=== PATIENT | male | born 1955 | race Caucasian/White ===

== ENCOUNTER 2017-01-12 16:42 | Observation (INO) | payer BC ==
[~2017-01-12] VITALS: Ht 171.4 cm; Wt 73.6 kg
[2017-01-12] MEDS ORDERED: SODIUM CHLORIDE 0.9% 1000ML 1,000 ML IV SCH (17:01)
[2017-01-12 17:10] LABS: BASO % 0.5 %; BASO ABS # 0.06 K/uL (0-0.2); COMPLETE YES; EOS % 2.2 %; HEMATOCRIT 35.5 % (42-52); IG% 0.8 %; LYMPH % 12.3 %; LYMPH ABS # 1.51 K/uL (1.2-3.4); MEAN CELL VOLUME 80.1 fL (80-100); MEAN CORPUSCULAR HGB CONC 34.9 g/dl (32-36); MEAN PLATELET VOLUME 8.7 fL (7.4-10.4); MONO % 11.6 %; NEUT % 72.6 %; PLATELET COUNT 267 K/uL (130-400); RED BLOOD COUNT 4.43 M/uL (4.7-6.1); WHITE BLOOD COUNT 12.29 K/uL (4.8-10.8)
[2017-01-12 17:18] LABS: PROTHROMBIN TIME (PATIENT) 10.7 SECONDS (9.0-12.0)
--- NOTE | 2017-01-12 17:29 | DIAGNOSTIC IMAGING REPORT ---
CHEST ONE VIEW PORTABLE CLINICAL HISTORY: Stroke dyspnea COMPARISON STUDY: None FINDINGS: The bones soft tissues and hemidiaphragms are normal. The cardiomediastinal silhouette is normal. The lungs are clear. The pulmonary vasculature is normal. Small fixed hiatal hernia IMPRESSION: No acute process. Small fixed hiatal hernia Electronically signed by: Blaine Wolfe M.D. 01/12/2017 5:28 PM Dictated Date/Time: 01/12/2017 5:27 PM
[2017-01-12 17:30] LABS: BLOOD UREA NITROGEN 23 mg/dl (7-18); BUN/CREATININE RATIO 14.3 (10-20); CARBON DIOXIDE 23 mmol/L (21-32); CHLORIDE 97 mmol/L (98-107); GLUCOSE 104 mg/dl (70-99); POTASSIUM 4.2 mmol/L (3.5-5.1); SODIUM 133 mmol/L (136-145)
[2017-01-12] MEDS ORDERED: IRON PO (17:30)
[2017-01-12] MEDS ORDERED: ASCO500C43 PO (17:30)
[2017-01-12] MEDS ORDERED: PROM12.57 PO (17:30)
[2017-01-12] MEDS ORDERED: METF-383 PO (17:30)
[2017-01-12] MEDS ORDERED: LOSA100T2 PO (17:30)
[2017-01-12] MEDS ORDERED: IMD/2 PO (17:30)
[2017-01-12] MEDS ORDERED: ASPI81TA28 PO (17:30)
[2017-01-12] MEDS ORDERED: PRAV20TA PO (17:30)
[2017-01-12] MEDS ORDERED: LORA-741 PO (17:30)
[2017-01-12] MEDS ORDERED: AMLO-114 PO (17:30)
[2017-01-12] MEDS ORDERED: OMEP40CA41 PO (17:30)
[2017-01-12] MEDS ORDERED: METO25TA3 PO (17:30)
[2017-01-12] MEDS ORDERED: DUTA0.5C PO (17:30)
[2017-01-12] MEDS ORDERED: AMOX875T PO (17:30)
[2017-01-12 17:35] LABS: CKMB/CK RATIO 3.9 (0-3.0)
--- NOTE | 2017-01-12 18:04 | DIAGNOSTIC IMAGING REPORT ---
HEAD CT NONCONTRAST CT DOSE: 1257.71 mGy.cm HISTORY: Mental status change Stroke TECHNIQUE: Multiaxial CT images of the head were performed without the use of intravenous contrast. Comparison: None. Findings: The paranasal sinuses and mastoid air cells are clear. The calvarium and skull base are intact. The ventricles and sulci are within normal limits. There is no mass, hematoma, midline shift, or acute infarct. Impression: No acute intracranial abnormality. Electronically signed by: Blaine Wolfe M.D. 01/12/2017 6:03 PM Dictated Date/Time: 01/12/2017 6:02 PM
[2017-01-12 18:13] LABS: ALKALINE PHOSPHATASE 95 U/L (45-117); ALT/SGPT 26 U/L (12-78); AST/SGOT 19 U/L (15-37)
--- NOTE | 2017-01-12 18:39 | EMERGENCY ROOM VISIT NOTE ---
History Report prepared by Harley: Mayela Horvath Under the Supervision of: Dr. Andres Beach D.O. First contact with patient: 16:48 Chief Complaint: VOMITING Stated Complaint: SICK SINCE FRI,VOMITING,POSSIBLE EAR INFECTION Nursing Triage Summary: n/v/d since Friday pm abd pain and epigastric pain chronic hiccups since Fri History of Present Illness The patient is a 61 year old male who presents to the Emergency Room with complaints of intermittent nausea and vomiting that started 4 days ago. He states that he is unable to keep anything down. The patient states that his symptoms started 5 days ago with generalized weakness followed by bowel incontinence and sweating. He went to the ED in [place] that night and they did a CT scan of his head. The patient was diagnosed with vertigo and followed up with his PCP the next day. His PCP also diagnosed him with vertigo and said that he might have an inner ear infection, but she did not see an infection because his ears need to cleaned out. The patient states that he developed persistent hiccups 4 days ago. He states that he took his daily medications 3 days ago and gagged after taking them. His immediately called the ambulance , but the patient was able to get the medications down prior to EMS arrival. He went to the ED anyway. The patient received a MRI of his head during that visit. GI was also consulted, but he states that he couldn't get in to see them for a while. He is also experiencing bilateral eye pain, visual problems in his right eye, throat pain, neck pain, intermittent abdominal pain, tingling in his right hand, and diarrhea. All of these symptoms were present when he was seen in the ED previously. He denies any one-sided weakness. The patient's adds that the patient had one of his esophagus rings stretched in the past. The patient also has a history of Type 2 diabetes, hypertension, and an unspecified kidney disease. Source of History: patient, spouse/significant other () Onset: 5 days ago Quality: other (nausea and vomiting) Timing: intermittent Associated Symptoms: + abdominal pain (intermittent), + diarrhea, + neck pain, + weakness (generalized, no one-sided) Note: bilateral eye pain, visual problems in his right eye, throat pain, hiccups, trouble swallowing, tingling in his right hand, bowel incontinence, sweating Review of Systems See HPI for pertinent positives & negatives. A total of 10 systems reviewed and were otherwise negative. Past Medical & Surgical Medical Problems: (1) Abdominal pain (2) BPH (benign prostatic hyperplasia) (3) History of esophageal dilatation (4) HLD (hyperlipidemia) (5) Hypertension (6) Nausea & vomiting (7) Skin cancer of nose (8) Type 2 diabetes mellitus Surgical Problems: (1) H/O repair of left rotator cuff (2) History of vasectomy Family History No pertinent family history Social History Smoking Status: Former Smoker Marital Status: Housing Status: lives with family Current/Historical Medications Scheduled Amlodipine (Norvasc), 10 MG PO DAILY Amoxicillin & Pot Clavulanate (Augmentin 875-125 mg), 1 TAB PO BID Ascorbic Acid (Vitamin C 500 mg), 500 MG PO DAILY Aspirin (Aspirin Ec), 81 MG PO DAILY Dutasteride (Avodart), 0.5 MG PO QPM Loperamide Hcl (Imodium), 2 MG PO PRN UD Losartan Potassium & Hydrochlo (Hyzaar), 1 TAB PO DAILY Metformin Hcl (Glucophage), 850 MG PO BID Metoprolol Succ (Toprol Xl) (Toprol-Xl), 25 MG PO BID Omeprazole (Prilosec), 40 MG PO DAILY Pravastatin (Pravachol ), 20 MG PO QPM [Iron], 65 MG PO QPM Scheduled PRN Lorazepam (Ativan), 0.5 MG PO BID PRN for Anxiety Promethazine (Phenergan ), 12.5 MG PO Q4H PRN for Nausea Allergies Coded Allergies: Codeine (Verified Allergy, Severe, GI SYMPTOMS, 01/12/17) Lisinopril (Verified Allergy, Intermediate, COUGH, 01/12/17) Paroxetine (Verified Allergy, Unknown, RASH, 01/12/17) Physical Exam Vital Signs Date Time Temp Pulse Resp B/P Pulse Ox O2 Delivery O2 Flow Rate FiO2 01/12/17 20:02 79 16 129/60 97 Room Air 01/12/17 18:37 82 18 158/76 98 Room Air 01/12/17 17:07 86 01/12/17 17:03 98 Room Air 01/12/17 16:43 36.7 84 20 115/78 95 Room Air Physical Exam GENERAL: Patient is awake and alert, but somewhat listless appearing. Patient is in no acute distress. Patient is resting comfortably and does not appear to be anxious or in any pain. EYES: The conjunctivae are clear. The pupils are round and reactive. EARS, NOSE, MOUTH AND THROAT: Bilateral cerumen impaction noted. The nose is without any evidence of any deformity. Mucous membranes are moist tongue is midline NECK: The neck is nontender and supple. RESPIRATORY: Normal respiratory effort is noted there is no evidence of wheezing rhonchi or rales CARDIOVASCULAR: Regular rate and rhythm noted there no murmurs rubs or gallops normal S1 normal S2 GASTROINTESTINAL: The abdomen is soft. Bowel sounds are present in all quadrants. Abdomen is nontender MUSCULOSKELETAL/EXTREMITIES: There is no evidence of gross deformity full range of motion is noted in the hips and shoulders SKIN: There is no obvious evidence of any rash. There are no petechiae, pallor or cyanosis noted. NEUROLOGIC: Patient is awake alert and oriented x3. No drift in either upper extremity. Patellar tendon reflexes 1+ bilaterally. Medical Decision & Procedures ER Provider Diagnostic Interpretation: Radiology results as stated below per my review and radiologist interpretation: CHEST ONE VIEW PORTABLE IMPRESSION: No acute process. Small fixed hiatal hernia Electronically signed by: Blaine Wolfe M.D. 01/12/2017 5:28 PM Dictated Date/Time: 01/12/2017 5:[address] NONCONTRAST Impression: No acute intracranial abnormality. Electronically signed by: Blaine Wolfe M.D. 01/12/2017 6:03 PM Dictated Date/Time: 01/12/2017 6:02 PM Laboratory Results Test 01/12/17 16:56 01/12/17 17:05 01/12/17 20:19 Prothrombin Time 10.7 SECONDS (9.0-12.0) Prothromb Time International Ratio 1.0 (0.9-1.1) Activated Partial Thromboplast Time 25.9 SECONDS (21.0-31.0) Partial Thromboplastin Ratio 1.0 Magnesium Level 1.8 mg/dl (1.8-2.4) Total Bilirubin 0.3 mg/dl (0.2-1) Direct Bilirubin < 0.1 mg/dl (0-0.2) Aspartate Amino Transf (AST/SGOT) 19 U/L (15-37) Alanine Aminotransferase (ALT/SGPT) 26 U/L (12-78) Alkaline Phosphatase 95 U/L (45-117) Total Creatine Kinase 38 U/L (39-308) Creatine Kinase MB 1.5 ng/ml (0.5-3.6) Creatine Kinase MB Ratio 3.9 (0-3.0) Troponin I < 0.015 ng/ml (0-0.045) Total Protein 7.6 gm/dl (6.4-8.2) Albumin 3.9 gm/dl (3.4-5.0) Lipase 244 U/L (73-393) Thyroid Stimulating Hormone (TSH) 1.650 uIu/ml (0.300-4.500) Estimated Average Glucose 131 mg/dl Hemoglobin A1c 6.2 % (4.5-5.6) Lactic Acid Level 1.6 mmol/L (0.4-2.0) Lyme Disease IgG Antibody NEG (NEG) Laboratory results per my review. Medications Administered Medications (Trade) Dose Ordered Sig/Cari Route Start Time Stop Time Status Last Admin Dose Admin Sodium Chloride (Nss 1000ml) 1,000 ml @ 50 mls/hr Q20H IV 01/12/17 17:01 01/12/17 21:43 DC 01/12/17 18:37 50 MLS/HR ECG Indication: abdominal pain Rate (beats per minute): 78 Rhythm: normal sinus Findings: Q waves (Inferior), no ectopy, other (no acute ST segment abnormalities) Comparison ECG Date: no prior available ED Course 1657: The patient was evaluated in room A12. A complete history and physical examination were performed. 1701: Ordered NSS 1,000 ml @ 50 mls/hr IV 1825: Upon reevaluation, the patient is resting comfortably. I discussed results and treatment plan with the patient and his . They verbalize agreement and understanding. The patient will be evaluated for further management and care. 1831: I discussed the patient's case with Cecile Bassett. The patient will be evaluated for further management. Medical Decision Prior records/ancillary studies reviewed. Triage Nursing notes reviewed. Additional history obtained from . The patient's history was concerning for dizziness and vertigo. Differential diagnosis: Etiologies such as benign positional vertigo, dehydration, hypovolemia, anemia, tumor, infection, electrolyte abnormalities, cardiac sources, intracerebral event, toxicologic, neurologic, infection, hypo/hyperglycemia, as well as others were entertained. The patient is a 61-year-old male who presented to the emergency department with multiple complaints. The patient appears to have nausea as well as vertigo symptoms but also has abdominal pain. He's had difficulty ambulating. He presented to the emergency department with his significant other. The patient has been seen in [facility] as well as by his primary care physician for this multiple times. He's also had difficulty swallowing. His primary care physician: Come to our facility today because of possible neurologic issues. They felt he would need to be admitted. The patient's workup in emergency department did not reveal any cause for his symptoms. The patient was reevaluated multiple times. I discussed his case with the on-call [facility] hospitalist. They have agreed to evaluate the patient in the emergency department for further management and disposition. Consults Time Called: 1828 Consulting Physician: Cecile Bassett Returned Call: 1830 I discussed the patient's case with Cecile Bassett. The patient will be evaluated for further management. Impression Primary Impression: TIA (transient ischemic attack) Additional Impressions: Vertigo Weakness Intractable hiccups Dysphagia Dehydration Scribe Attestation The scribe's documentation has been prepared under my direction and personally reviewed by me in its entirety. I confirm that the note above accurately reflects all work, treatment, procedures, and medical decision making performed by me. Departure Information Dispostion Being Evaluated By Hospitalist Referrals Allan Williamson M.D. (PCP) Patient Instructions [facility] Problem Qualifiers Primary Impression: TIA (transient ischemic attack) Transient cerebral ischemia type: unspecified Qualified Codes: G45.9 - Transient cerebral ischemic attack, unspecified Additional Impressions: Dysphagia Dysphagia type: unspecified Qualified Codes: R13.10 - Dysphagia, unspecified
--- NOTE | 2017-01-12 20:17 | History and Physical ---
History & Physical Date & Time of Service: Jan 12, 2017 at 19:57 Chief Complaint: Weakness, Hiccups Primary Care Physician: Allan Williamson M.D. History of Present Illness 61 year old male who presents to the ER with generalized weakness and hiccups. Patient reports 6 days ago he felt lightheaded and dizzy and was leaning to the right whenever he would walk. He was seen at [facility]'s ER. Per his report, he had CT scan of the head that was normal and was discharged home to follow up with his PCP who he saw the following day. He was then diagnosed with an ear infection and was given an antibiotic. The following morning he woke up and had hiccups. While taking his pills, he hiccuped and choked on his pills. He was able to get them out on his own. He also reports left hand numbness at that time that quickly resolved. He then went back to the ER. Per his report, he had an MRI of the brain that was normal was discharged home to follow up with GI and his PCP. Patient reports the hiccuping has persisted. He has been unable to keep liquids or food down. He still feels lightheaded and dizzy at times. No syncopal events. No unilateral weakness, numbness, or tingling. He denies abdominal pain. He reports he has been having diarrhea. He denies BRBRP or dark tarry stools. No chest pain or shortness of breath. He denies fever and chills. Feels like his urine output is down but denies other urinary symptoms. In the ER , patient's creat is 1.6 (unknown baseline but patient denies history of kidney problems). CT head is negative for acute findings and remainder of his labs are unremarkable. Past Medical/Surgical History Medical Problems: (1) BPH (benign prostatic hyperplasia) Status: Chronic (2) History of esophageal dilatation Status: Chronic (3) HLD (hyperlipidemia) Status: Chronic (4) Hypertension Status: Chronic (5) Skin cancer of nose Status: Chronic (6) Type 2 diabetes mellitus Status: Chronic Surgical Problems: (1) H/O repair of left rotator cuff Status: Chronic (2) History of vasectomy Status: Chronic Family History FH: esophageal cancer FATHER Social History Smoking Status: Former Smoker Alcohol Use: none Marital Status: Allergies Coded Allergies: Codeine (Verified Allergy, Severe, GI SYMPTOMS, 01/12/17) Lisinopril (Verified Allergy, Intermediate, COUGH, 01/12/17) Paroxetine (Verified Allergy, Unknown, RASH, 01/12/17) Home Medications Scheduled Amlodipine (Norvasc), 10 MG PO DAILY Amoxicillin & Pot Clavulanate (Augmentin 875-125 mg), 1 TAB PO BID Ascorbic Acid (Vitamin C 500 mg), 500 MG PO DAILY Aspirin (Aspirin Ec), 81 MG PO DAILY Dutasteride (Avodart), 0.5 MG PO QPM Loperamide Hcl (Imodium), 2 MG PO PRN UD Losartan Potassium & Hydrochlo (Hyzaar), 1 TAB PO DAILY Metformin Hcl (Glucophage), 850 MG PO BID Metoprolol Succ (Toprol Xl) (Toprol-Xl), 25 MG PO BID Omeprazole (Prilosec), 40 MG PO DAILY Pravastatin (Pravachol ), 20 MG PO QPM [Iron], 65 MG PO QPM Scheduled PRN Lorazepam (Ativan), 0.5 MG PO BID PRN for Anxiety Promethazine (Phenergan ), 12.5 MG PO Q4H PRN for Nausea Review of Systems 10 point review of systems was completed with the pertinent positives and negatives noted per the HPI Physical Exam Vital Signs Date Time Temp Pulse Resp B/P Pulse Ox O2 Delivery O2 Flow Rate FiO2 01/12/17 18:37 82 18 158/76 98 Room Air 01/12/17 17:07 86 01/12/17 17:03 98 Room Air 01/12/17 16:43 36.7 84 20 115/78 95 Room Air General Appearance: no apparent distress (hiccuping during exam) Head: normocephalic Eyes: normal inspection ENT: hearing grossly normal Neck: supple, no JVD Respiratory/Chest: lungs clear, normal breath sounds, no respiratory distress Cardiovascular: regular rate, rhythm, no edema, normal peripheral pulses Abdomen/GI: normal bowel sounds, non tender, soft Extremities/Musculoskelatal: normal inspection, no calf tenderness Neurologic/Psych: no motor/sensory deficits, alert, normal mood/affect, oriented x 3 Skin: normal color, warm/dry Diagnostics Laboratory Results Results Past 24 Hours Test 01/12/17 16:56 01/12/17 19:42 01/12/17 19:45 Range/Units White Blood Count 12.29 4.8-10.8 K/uL Red Blood Count 4.43 4.7-6.1 M/uL Hemoglobin 12.4 14.0-18.0 g/dL Hematocrit 35.5 42-52 % Mean Corpuscular Volume 80.1 80-100 fL Mean Corpuscular Hemoglobin 28.0 25-34 pg Mean Corpuscular Hemoglobin Concent 34.9 32-36 g/dl Platelet Count 267 130-400 K/uL Mean Platelet Volume 8.7 7.4-10.4 fL Neutrophils (%) (Auto) 72.6 % Lymphocytes (%) (Auto) 12.3 % Monocytes (%) (Auto) 11.6 % Eosinophils (%) (Auto) 2.2 % Basophils (%) (Auto) 0.5 % Neutrophils # (Auto) 8.92 1.4-6.5 K/uL Lymphocytes # (Auto) 1.51 1.2-3.4 K/uL Monocytes # (Auto) 1.43 0.11-0.59 K/uL Eosinophils # (Auto) 0.27 0-0.5 K/uL Basophils # (Auto) 0.06 0-0.2 K/uL RDW Standard Deviation 40.2 36.4-46.3 fL RDW Coefficient of Variation 13.7 11.5-14.5 % Immature Granulocyte % (Auto) 0.8 % Immature Granulocyte # (Auto) 0.10 0.00-0.02 K/uL Prothrombin Time 10.7 9.0-12.0 SECONDS Prothromb Time International Ratio 1.0 0.9-1.1 Activated Partial Thromboplast Time 25.9 21.0-31.0 SECONDS Partial Thromboplastin Ratio 1.0 Sodium Level 133 136-145 mmol/L Potassium Level 4.2 3.5-5.1 mmol/L Chloride Level 97 98-107 mmol/L Carbon Dioxide Level 23 21-32 mmol/L Anion Gap 13.0 3-11 mmol/L Blood Urea Nitrogen 23 7-18 mg/dl Creatinine 1.60 0.60-1.40 mg/dl Est Creatinine Clear Calc Drug Dose 45.6 ml/min Estimated GFR () 52.7 Estimated GFR (Non- 45.5 BUN/Creatinine Ratio 14.3 10-20 Random Glucose 104 70-99 mg/dl Calcium Level 9.0 8.5-10.1 mg/dl Total Bilirubin 0.3 0.2-1 mg/dl Direct Bilirubin < 0.1 0-0.2 mg/dl Aspartate Amino Transf (AST/SGOT) 19 15-37 U/L Alanine Aminotransferase (ALT/SGPT) 26 12-78 U/L Alkaline Phosphatase 95 45-117 U/L Total Creatine Kinase 38 39-308 U/L Creatine Kinase MB 1.5 0.5-3.6 ng/ml Creatine Kinase MB Ratio 3.9 0-3.0 Troponin I < 0.015 0-0.045 ng/ml Total Protein 7.6 6.4-8.2 gm/dl Albumin 3.9 3.4-5.0 gm/dl Lipase 244 73-393 U/L Microbiology Results 01/12/17 Blood Culture, Nazia Batch Pending 01/12/17 Blood Culture, Nazia Batch Pending Diagnostic Radiology CT Head Impression: No acute intracranial abnormality. CXR IMPRESSION: No acute process. Small fixed hiatal hernia Impression Assessment and Plan N/V, HICCUPS - admit to med/surg - patient presenting with intermittent lightheadedness/dizziness, persistent hiccups; was seen at [facility] ER this week and had head CT and brain MRI ( negative per patient report, will obtain records) - supportive care with IVF, antiemetics - hx of esophageal stricture s/p dilation (details unknown) - GI consult CHELE - likely pre renal due to poor PO intake and N/V - IVF, follow up labs in AM - baseline creat unknown - patient denies history of kidney disease GENERALIZED WEAKNESS, DIZZINESS - likely orthostasis from volume depletion - head CT negative; had brain MRI at [facility] - negative per patient report, will obtain records - IVF HTN - BP stable - hold losartan/HCTZ due to CHELE - continue metoprolol and amlodipine DM - hold oral agents and utilize SSI while hospitalized DISPO - The patient will be placed as observation status for now until further work up is complete. Assessment/Plan IM ATTENDING : Patient seen and examined. Preceding documentation by CHARAN Leiva, reviewed. In addition, CT abd pelvis unremarkable except for hiatal hernia. FINAL ASSESSMENT AND PLAN as follows: 1. Abdominal pain, nausea, vomiting, hiccups likely viral gastroenteritis No signs of toxicity 2. Hyponatremia, chronic renal insufficiency creatinine at baseline mild dehydration 2 to GI illness 3. Hypertension, slightly elevated. 4. DM2 on oral meds, unknown baseline control 5. Chronic anemia 2 to CKD, hemoglobin at baseline Observation GMF Symptomatic management of GI sx for now. IV fluids. Inpatient GI consult as per patient's request for evaluation of nausea, vomiting and hiccup symptoms. Patient could not wait for his outpatient GI appointment with this week (Dr. Gracia). ISS BG goal 140-180. Check hemoglobin A1c. DVT prophylaxis, SCDs. Full code.
[2017-01-12 20:25] LABS: MAGNESIUM 1.8 mg/dl (1.8-2.4); THYROID STIMULATING HORMONE 1.65 uIu/ml (0.300-4.500)
[2017-01-12] MEDS ORDERED: IV FLUIDS COMPLETED PRN (21:15)
[2017-01-12] MEDS ORDERED: LORAZEPAM 2 MG/ML 1 ML VIAL IV PRN (21:15)
[2017-01-12] MEDS ORDERED: LORAZEPAM 0.5 MG TAB PO PRN (21:15)
[2017-01-12] MEDS ORDERED: ACETAMINOPHEN 325 MG TAB PO PRN (21:15)
[2017-01-12] MEDS ORDERED: HYDROmorphone INJ 0.5 MG/0.5 ML SYR IV PRN (21:15)
[2017-01-12] MEDS ORDERED: TRAMADOL HCL 50 MG TAB PO PRN (21:15)
[2017-01-12] MEDS ORDERED: ONDANSETRON INJ 2 MG/ML 2 ML VIAL IV PRN (21:15)
[2017-01-12] MEDS ORDERED: PROMETHAZINE HCL INJ 12.5 MG in SODIUM CHLORIDE 0.9% 50ML 50 ML IV PRN (21:15)
[2017-01-12 21:21] VITALS: O2SAT 99
--- NOTE | 2017-01-12 21:44 | DIAGNOSTIC IMAGING REPORT ---
ABDOMEN AND PELVIS CT WITHOUT CONTRAST CT DOSE: 635.95 mGy.cm HISTORY: Nausea. Pain. abd pain TECHNIQUE: Multiaxial CT images of the abdomen and pelvis were performed without contrast. COMPARISON STUDY: None. FINDINGS: Hiatal hernia. Lung bases are clear. Liver spleen and pancreas appear unremarkable. Gallbladder is negative for distention. Bowel pattern within the abdomen and pelvis is nonobstructive. Kidneys negative for hydronephrosis. Small fat-containing periumbilical hernia. Bladder is midline. No free fluid within the pelvic cul-de-sac. Normal appendix IMPRESSION: No significant abnormality identified within the abdomen or pelvis. Electronically signed by: Blaine Wolfe M.D. 01/12/2017 9:43 PM Dictated Date/Time: 01/12/2017 9:40 PM
[2017-01-12] MEDS: SODIUM CHLORIDE 0.9% 1000ML 1,000 ML IV SCH (22:13)
[2017-01-12] MEDS ORDERED: MAGNESIUM SULFATE 1GM / D5W 1 GM in PREMIXED IN D5W 100 ML IV ONE (23:30)
[2017-01-12 23:42] VITALS: BP 170/75; PULSE 86; TEMP 37.1; O2SAT 100
[2017-01-13] MEDS ORDERED: GLUCOSE 40% GEL 15 GM TUBE PO PRN (00:15)
[2017-01-13] MEDS ORDERED: GLUCOSE 10 TABS/TUBE PO PRN (00:15)
[2017-01-13] MEDS ORDERED: GLUCAGON FOR INJ 1 MG VIAL SQ PRN (00:15)
[2017-01-13] MEDS ORDERED: DEXTROSE 50% 50 ML SYR IV PRN (00:15)
[2017-01-13 05:17] VITALS: BP 147/79; PULSE 70; TEMP 36.8; Ht 171.4 cm; Wt 73.6 kg
--- NOTE | 2017-01-13 05:53 | HISTORY & PHYSICAL EXAMINATION ---
DATE OF ADMISSION: 01/12/2017 IM ATTENDING : Patient seen and examined. Preceding documentation by CHARAN eLiva, reviewed. In addition, CT abd pelvis unremarkable except for hiatal hernia. FINAL ASSESSMENT AND PLAN as follows: 1. Abdominal pain, nausea, vomiting, hiccups likely viral gastroenteritis No signs of toxicity 2. Hyponatremia, chronic renal insufficiency creatinine at baseline mild dehydration 2 to GI illness 3. Hypertension, slightly elevated. 4. DM2 on oral meds, unknown baseline control 5. Chronic anemia 2 to CKD, hemoglobin at baseline Observation GMF Symptomatic management of GI sx for now. IV fluids. Inpatient GI consult as per patient's request for evaluation of nausea, vomiting and hiccup symptoms. Patient could not wait for his outpatient GI appointment with this week (Dr. Gracia). ISS BG goal 140-180. Check hemoglobin A1c. DVT prophylaxis, SCDs. Full code. MTDD
[2017-01-13] MEDS: METOCLOPRAMIDE HCL INJ 5 MG/ML 2 ML VIAL IV PRN ×3 (06:43→21:30)
[2017-01-13 07:18] VITALS: BP 125/67; PULSE 78; TEMP 36.9; O2SAT 96
[2017-01-13 07:43] LABS: BASO % 0.4 %; BASO ABS # 0.04 K/uL (0-0.2); COMPLETE YES; EOS % 2.5 %; HEMATOCRIT 32.4 % (42-52); IG% 0.6 %; LYMPH % 12.2 %; MEAN CELL VOLUME 81.2 fL (80-100); MEAN CORPUSCULAR HEMOGLOBIN 27.1 pg (25-34); MEAN CORPUSCULAR HGB CONC 33.3 g/dl (32-36); MEAN PLATELET VOLUME 8.8 fL (7.4-10.4); MONO % 14.8 %; NEUT % 69.5 %; PLATELET COUNT 216 K/uL (130-400); RED BLOOD COUNT 3.99 M/uL (4.7-6.1); WHITE BLOOD COUNT 9.82 K/uL (4.8-10.8)
[2017-01-13] MEDS ORDERED: PANTOprazole SOD 40 MG TAB PO SCH (08:00)
[2017-01-13 08:15] LABS: BUN/CREATININE RATIO 12.3 (10-20); CALCIUM 8.6 mg/dl (8.5-10.1); CREATININE 1.5 mg/dl (0.60-1.40)
[2017-01-13] MEDS: INSULIN ASPART 100 UNITS/ML 3 ML PEN SC SCH ×4 (08:15→21:14)
[2017-01-13] MEDS: METOPROLOL SUCC 25MG EXT REL TAB PO SCH ×2 (08:17→19:55)
[2017-01-13] MEDS: AMLODIPINE BESYLATE 5 MG TAB PO SCH (08:17)
[2017-01-13] MEDS: PANTOprazole SOD 40 MG TAB PO SCH (08:18)
[2017-01-13 08:30] LABS: ESTIMATED AVERAGE GLUCOSE 131 mg/dl; HA1C FLAG Normal (Normal)
--- NOTE | 2017-01-13 12:09 | Gastrointestinal Consultation ---
Gastrointestinal Consultation Date of Consultation: Jan 13, 2017 Attending Physician: Dr. Mcclure Consulting Physician: Dr. Schuster Reason for Consultation: Patient requests consult due to N/V and hiccups History of Present Illness Patient is a 61 year old male with PMHx of BPH, HLD, HTN, DM2 and hx of esophageal stricture admitted for N/V and hiccups for which GI is consulted as pt was unable to keep out patient appt with his regular GI (Dr. Gracia in [place]). He notes he developed weakness and lost balance 6 days ago, evaluated at [facility] ER where CT was negative, he was d/c'd to f/ with PCP. He saw PCP 5 days ago and was given antibiotic for ear infection. Reports was not feeling any better the following day, had dizziness, weakness and hiccups and went back to ER were work up (MRI of brain) was again negative, then discharged to f/u with GI and PCP. He had an episode of difficulty swallowing large pills prior to admission. PT notes hiccups persisted through the weekend. He had a few days of N/V, unable to keep foods down, partially due to hiccups. He denied abdominal pain, bowel changes, blood in stool, unilateral weakness or syncopal event. Pt denies significant GERD sx. I do not have his GI records but notes his colonoscopy is up to date, last was approx 2 years ago. He has hx of esophageal stricture requiring dilation approx. 8 years ago. Pt denies weight loss or dysphagia at present. He is tolerating sips of liquids and took pills this morning without difficulty. He is somewhat of a poor historian. His hiccups as well as N/V have resolved overnight. This morning he has no complaints. Chlorpromazine has been ordered PRN for hiccups, no dose required yet today. ED work up included mildly elevated WBC count which has now normalized. CT A/ P without contrast revealed no acute process. H/H stable. Past Medical/Surgical History Medical Problems: (1) Hypertension Status: Chronic (2) Type 2 diabetes mellitus Status: Chronic Past Medical History: HTN DM2 BPH HLD Past Surgical History: rotator cuff repair vasectomy Family History FH: esophageal cancer FATHER Social History Smoking Status: Unknown if Ever Smoked Alcohol Use: none Drug Use: none Marital Status: Housing Status: lives with family Allergies Coded Allergies: Codeine (Verified Allergy, Severe, GI SYMPTOMS, 01/12/17) Lisinopril (Verified Allergy, Intermediate, COUGH, 01/12/17) Paroxetine (Verified Allergy, Unknown, RASH, 01/12/17) Current Medications Home Meds and Scripts Medications Dose Route/Sig Max Daily Dose Days Date Category Dose Instructions Augmentin 875-125 mg (Amoxicillin & Pot Clavulanate) 1 Tab Tab 1 Tab PO BID 01/12/17 Reported Phenergan (Promethazine HCl) 12.5 Mg Tab 12.5 Mg PO Q4H PRN 01/12/17 Reported Imodium (Loperamide HCl) 2 Mg Cap 2 Mg PO PRN UD 01/12/17 Reported Vitamin C 500 mg (Ascorbic Acid) 1 Chw Chw 500 Mg PO DAILY 01/12/17 Reported [Iron] 65 Mg PO QPM 01/12/17 Reported Aspirin Ec (Aspirin) 81 Mg Tab 81 Mg PO DAILY 01/12/17 Reported Avodart (Dutasteride) 0.5 Mg Cap 0.5 Mg PO QPM 01/12/17 Reported Ativan (Lorazepam) 0.5 Mg Tab 0.5 Mg PO BID PRN 01/12/17 Reported Pravachol (Pravastatin Sodium) 20 Mg Tab 20 Mg PO QPM 01/12/17 Reported Prilosec (Omeprazole) 40 Mg Cap 40 Mg PO DAILY 01/12/17 Reported Glucophage (Metformin Hcl) 850 Mg Tab 850 Mg PO BID 01/12/17 Reported Norvasc (Amlodipine Besylate) 10 Mg Tab 10 Mg PO DAILY 01/12/17 Reported Toprol-Xl (Metoprolol Succinate) 25 Mg Tabcr 25 Mg PO BID 01/12/17 Reported Hyzaar (Losartan Potassium & Hydrochlo) 1 Tab Tab 1 Tab PO DAILY 30 01/12/17 Reported 100-25mg Review of Systems Constitutional: No chills, No fever, No weight loss Eyes: No worsening of vision ENT: No hearing loss, No pain on swallowing, No trouble swallowing Respiratory: No cough, No shortness of breath Cardiac: No chest pain, No edema Abdomen: + see HPI, No GI bleeding Musculoskeletal: No swelling Male : No dysuria Neuro: No memory loss, No numbness/tingling, No weakness Psych: No depression symptoms Heme: No abnormal bleeding/bruising Skin: No rash 12 systems reviewed and negative except as noted Physical Exam Date Time Temp Pulse Resp B/P Pulse Ox O2 Delivery O2 Flow Rate FiO2 01/13/17 08:30 Room Air 01/13/17 07:18 36.9 78 18 125/67 96 Room Air 01/13/17 05:17 36.8 70 20 147/79 Room Air 01/12/17 23:42 37.1 86 20 170/75 100 Room Air 01/12/17 21:21 78 20 141/82 99 Room Air 01/12/17 20:02 79 16 129/60 97 Room Air 01/12/17 18:37 82 18 158/76 98 Room Air 01/12/17 17:07 86 01/12/17 17:03 98 Room Air 01/12/17 16:43 36.7 84 20 115/78 95 Room Air General Appearance: WD/WN, no apparent distress (61yo resting comfortably in bed, NAD, no hiccups at present time) Eyes: PERRL ENT: normal ENT inspection, hearing grossly normal Neck: supple Respiratory/Chest: chest non-tender, normal breath sounds, no respiratory distress Cardiovascular: regular rate, rhythm Abdomen: normal bowel sounds, non tender, soft, no organomegaly Extremities: normal range of motion, non-tender, no pedal edema Neurologic/Psych: alert, normal mood/affect, oriented x 3 Skin: normal color, warm/dry, no rash Laboratory Results Last 24 Hours Test 01/12/17 16:56 01/12/17 17:05 01/12/17 20:19 01/13/17 06:42 White Blood Count 12.29 K/uL 9.82 K/uL Red Blood Count 4.43 M/uL 3.99 M/uL Hemoglobin 12.4 g/dL 10.8 g/dL Hematocrit 35.5 % 32.4 % Mean Corpuscular Volume 80.1 fL 81.2 fL Mean Corpuscular Hemoglobin 28.0 pg 27.1 pg Mean Corpuscular Hemoglobin Concent 34.9 g/dl 33.3 g/dl Platelet Count 267 K/uL 216 K/uL Mean Platelet Volume 8.7 fL 8.8 fL Neutrophils (%) (Auto) 72.6 % 69.5 % Lymphocytes (%) (Auto) 12.3 % 12.2 % Monocytes (%) (Auto) 11.6 % 14.8 % Eosinophils (%) (Auto) 2.2 % 2.5 % Basophils (%) (Auto) 0.5 % 0.4 % Neutrophils # (Auto) 8.92 K/uL 6.82 K/uL Lymphocytes # (Auto) 1.51 K/uL 1.20 K/uL Monocytes # (Auto) 1.43 K/uL 1.45 K/uL Eosinophils # (Auto) 0.27 K/uL 0.25 K/uL Basophils # (Auto) 0.06 K/uL 0.04 K/uL RDW Standard Deviation 40.2 fL 41.5 fL RDW Coefficient of Variation 13.7 % 13.9 % Immature Granulocyte % (Auto) 0.8 % 0.6 % Immature Granulocyte # (Auto) 0.10 K/uL 0.06 K/uL Prothrombin Time 10.7 SECONDS Prothromb Time International Ratio 1.0 Activated Partial Thromboplast Time 25.9 SECONDS Partial Thromboplastin Ratio 1.0 Sodium Level 133 mmol/L 136 mmol/L Potassium Level 4.2 mmol/L 4.0 mmol/L Chloride Level 97 mmol/L 99 mmol/L Carbon Dioxide Level 23 mmol/L 27 mmol/L Anion Gap 13.0 mmol/L 10.0 mmol/L Blood Urea Nitrogen 23 mg/dl 19 mg/dl Creatinine 1.60 mg/dl 1.50 mg/dl Est Creatinine Clear Calc Drug Dose 45.6 ml/min 48.6 ml/min Estimated GFR () 52.7 57.0 Estimated GFR (Non- 45.5 49.2 BUN/Creatinine Ratio 14.3 12.3 Random Glucose 104 mg/dl 109 mg/dl Calcium Level 9.0 mg/dl 8.6 mg/dl Magnesium Level 1.8 mg/dl Total Bilirubin 0.3 mg/dl Direct Bilirubin < 0.1 mg/dl Aspartate Amino Transf (AST/SGOT) 19 U/L Alanine Aminotransferase (ALT/SGPT) 26 U/L Alkaline Phosphatase 95 U/L Total Creatine Kinase 38 U/L Creatine Kinase MB 1.5 ng/ml Creatine Kinase MB Ratio 3.9 Troponin I < 0.015 ng/ml Total Protein 7.6 gm/dl Albumin 3.9 gm/dl Lipase 244 U/L Thyroid Stimulating Hormone (TSH) 1.650 uIu/ml Estimated Average Glucose 131 mg/dl Hemoglobin A1c 6.2 % Lactic Acid Level 1.6 mmol/L Lyme Disease IgG Antibody NEG Test 01/13/17 07:39 Bedside Glucose 119 mg/dl Impression Patient is a 61 year old male with N/V and hiccups x 4-5 days which has now resolved. Plan Sx possibly due to viral gastroenteritis. No reported diarrhea and symptoms have improved with conservative management. He has tolerated sips of liquids thus far. GI recommendations are to begin clear liquids and advance as tolerated. He is not complaining of chronic GERD sx or dysphagia. Would defer elective EGD to primary Route Sales Specialist as out patient (Dr. Samia Garcia) Agree with use of Chlorpromazine or Reglan PRN for hiccups. PPI once daily as per home med list. GI will sign off, please call with questions. I have seen and examined the patient with Su Alcocer whose note reflects our findings and plan. Abd exam is benign. Symptoms have resolved. Agree wtih conservative mgt and f/u with her primary casket assembler metal as scheduled.
[2017-01-13] MEDS: SODIUM CHLORIDE 0.9% 1000ML 1,000 ML IV SCH (14:05)
[2017-01-13 15:04] VITALS: BP 154/76; PULSE 86; TEMP 36.8; O2SAT 98
--- NOTE | 2017-01-13 17:54 | Progress Note ---
Medicine Progress Note Date & Time of Visit: Jan 13, 2017 at 17:54. Subjective seen resting in bed hiccups still present but somewhat less tolerating clear liquid diet no other symptoms Objective Last 8 Hrs Date Time Temp Pulse Resp B/P Pulse Ox O2 Delivery O2 Flow Rate FiO2 01/13/17 15:04 36.8 86 20 154/76 98 Room Air Physical Exam: General- oriented x 3, not in distress, speaks in sentences with no effort Eyes- anicteric Neck-no JVD Lungs- clear breath sounds bilaterally Heart- normal rate, regular rhythm; no murmurs Abdomen- normal bowel sounds, soft, nontender Extremities- no pretibial edema, no calf tenderness Neuro- alert, oriented x 3 Skin- warm & dry Laboratory Results: Last 24 Hours Test 01/12/17 20:19 01/13/17 06:42 01/13/17 07:39 Lactic Acid Level 1.6 mmol/L Lyme Disease IgG Antibody NEG White Blood Count 9.82 K/uL Red Blood Count 3.99 M/uL Hemoglobin 10.8 g/dL Hematocrit 32.4 % Mean Corpuscular Volume 81.2 fL Mean Corpuscular Hemoglobin 27.1 pg Mean Corpuscular Hemoglobin Concent 33.3 g/dl Platelet Count 216 K/uL Mean Platelet Volume 8.8 fL Neutrophils (%) (Auto) 69.5 % Lymphocytes (%) (Auto) 12.2 % Monocytes (%) (Auto) 14.8 % Eosinophils (%) (Auto) 2.5 % Basophils (%) (Auto) 0.4 % Neutrophils # (Auto) 6.82 K/uL Lymphocytes # (Auto) 1.20 K/uL Monocytes # (Auto) 1.45 K/uL Eosinophils # (Auto) 0.25 K/uL Basophils # (Auto) 0.04 K/uL RDW Standard Deviation 41.5 fL RDW Coefficient of Variation 13.9 % Immature Granulocyte % (Auto) 0.6 % Immature Granulocyte # (Auto) 0.06 K/uL Sodium Level 136 mmol/L Potassium Level 4.0 mmol/L Chloride Level 99 mmol/L Carbon Dioxide Level 27 mmol/L Anion Gap 10.0 mmol/L Blood Urea Nitrogen 19 mg/dl Creatinine 1.50 mg/dl Est Creatinine Clear Calc Drug Dose 48.6 ml/min Estimated GFR () 57.0 Estimated GFR (Non- 49.2 BUN/Creatinine Ratio 12.3 Random Glucose 109 mg/dl Calcium Level 8.6 mg/dl Bedside Glucose 119 mg/dl Date/Time Source Procedure Growth Status 01/12/17 20:19 Blood Blood Culture Pending Received 01/12/17 20:10 Blood Blood Culture Pending Received Assessment & Plan INTRACTABLE HICCUPS - patient presenting with intermittent lightheadedness/dizziness, persistent hiccups; was seen at [facility] ER this week and had head CT and brain MRI ( negative per patient report, will obtain records) - hx of esophageal stricture s/p dilation (details unknown) - CT Abdomen: hiatal hernia - trial of Thorazine, Reglan - GI on board CHELE - likely pre renal due to poor PO intake and N/V - crea improving - continue IV fluids GENERALIZED WEAKNESS, DIZZINESS - likely orthostasis from volume depletion - head CT negative; had brain MRI at [facility] - negative per patient report, will obtain records - improving HTN - BP stable - hold losartan/HCTZ due to CHELE - continue metoprolol and amlodipine DM - hold oral agents and utilize SSI while hospitalized DISPO pending lives with family Current Inpatient Medications: Current Inpatient Medications Medications (Trade) Dose Ordered Sig/Cari Route Start Time Stop Time Status Last Admin Dose Admin Miscellaneous (Iv Fluids Completed) 1 ea PRN PRN N/A 01/12/17 21:15 01/12/18 21:14 Acetaminophen (Tylenol Tab) 650 mg Q4H PRN PO 01/12/17 21:15 02/11/17 21:14 Ondansetron HCl (Zofran Inj) 4 mg Q6H PRN IV 01/12/17 21:15 02/11/17 21:14 Tramadol HCl (Ultram Tab) 25 mg Q6H PRN PO 01/12/17 21:15 02/11/17 21:14 Hydromorphone HCl (Dilaudid Inj) 0.5 mg Q3H PRN IV 01/12/17 21:15 01/26/17 21:14 Lorazepam 0.5 mg 0.5 mg Q4H PRN IV 01/12/17 21:15 02/11/17 21:14 Promethazine HCl 12.5 mg/Sodium Chloride 50.5 ml @ 204 mls/hr Q6H PRN IV 01/12/17 21:15 02/11/17 21:14 Sodium Chloride (Nss 1000ml) 1,000 ml @ 60 mls/hr [id number] IV 01/12/17 21:15 02/11/17 21:14 01/13/17 14:05 60 MLS/HR Amlodipine Besylate (Norvasc Tab) 10 mg DAILY PO 01/13/17 08:00 02/12/17 08:59 01/13/17 08:17 10 MG Lorazepam (Ativan Tab) 0.5 mg BID PRN PO 01/12/17 21:15 02/11/17 21:14 Metoprolol Succinate (Toprol Xl Tab) 25 mg BID PO 01/13/17 08:00 02/12/17 08:59 01/13/17 08:17 25 MG Pantoprazole Sodium (Protonix Tab) 40 mg QAM PO 01/13/17 08:00 02/12/17 08:59 01/13/17 08:18 40 MG Metoclopramide HCl (Reglan Inj) 10 mg Q6H PRN IV 01/13/17 00:15 02/12/17 00:14 01/13/17 12:55 10 MG Chlorpromazine HCl (Thorazine Inj) 25 mg Q6 PRN IM 01/13/17 00:15 02/12/17 00:14 Insulin Aspart (novoLOG ASPART) SLIDING SCALE If C... ACHS SC 01/13/17 06:30 02/12/17 06:29 Glucose (Glucose 40% Gel) 15-30 GRAMS 15 GRAMS... UD PRN PO 01/13/17 00:15 02/12/17 00:14 Glucose (Glucose Chew Tab) 4-8 Tablets 4 Tabl... UD PRN PO 01/13/17 00:15 02/12/17 00:14 Dextrose (Dextrose 50% 50ML Syringe) 25-50ML OF 50% DW IV FOR... UD PRN IV 01/13/17 00:15 02/12/17 00:14 Glucagon (Glucagon Inj) 1 mg UD PRN SQ 01/13/17 00:15 02/12/17 00:14
[2017-01-13] MEDS: CHLORPROMAZINE HCL INJ 25 MG/ML 2 ML AMP IM PRN (18:26)
[2017-01-13] MEDS: LORAZEPAM INJ 0.5 MG in SYRINGE 0.75 ML IV PRN ×2 (19:50→23:45)
[2017-01-13] MEDS ORDERED: PRAVASTATIN SOD 20 MG TAB PO SCH (21:00)
[2017-01-13 23:10] VITALS: BP 154/79; PULSE 87; TEMP 37.3; O2SAT 95
[2017-01-14] MEDS: LORAZEPAM INJ 0.5 MG in SYRINGE 0.75 ML IV PRN ×2 (04:30→08:57)
[2017-01-14] MEDS: SODIUM CHLORIDE 0.9% 1000ML 1,000 ML IV SCH ×2 (06:13→22:53)
[2017-01-14 06:59] LABS: BASO % 0.6 %; BASO ABS # 0.05 K/uL (0-0.2); COMPLETE YES; EOS % 2.9 %; HEMATOCRIT 30.2 % (42-52); IG% 0.6 %; LYMPH % 15.8 %; MEAN CELL VOLUME 82.1 fL (80-100); MEAN CORPUSCULAR HEMOGLOBIN 27.4 pg (25-34); MEAN CORPUSCULAR HGB CONC 33.4 g/dl (32-36); MEAN PLATELET VOLUME 8.5 fL (7.4-10.4); MONO % 14.5 %; NEUT % 65.6 %; PLATELET COUNT 201 K/uL (130-400); RED BLOOD COUNT 3.68 M/uL (4.7-6.1); WHITE BLOOD COUNT 8.22 K/uL (4.8-10.8)
[2017-01-14 07:16] VITALS: BP 157/84; PULSE 90; TEMP 37.1; O2SAT 95
[2017-01-14 07:26] LABS: CALCIUM 8.1 mg/dl (8.5-10.1); CREATININE 1.4 mg/dl (0.60-1.40); POTASSIUM 3.8 mmol/L (3.5-5.1)
[2017-01-14] MEDS: INSULIN ASPART 100 UNITS/ML 3 ML PEN SC SCH ×4 (07:54→20:31)
[2017-01-14] MEDS: PANTOprazole SOD 40 MG TAB PO SCH (07:55)
[2017-01-14] MEDS: METOPROLOL SUCC 25MG EXT REL TAB PO SCH ×2 (07:55→20:26)
[2017-01-14] MEDS: AMLODIPINE BESYLATE 5 MG TAB PO SCH (07:55)
--- NOTE | 2017-01-14 14:10 | Gastroenterology Progress Note ---
Progress Note Date of Service: Jan 14, 2017 Subjective Pt evaluation today including: conversation w/ patient, conversation w/ family , physical exam, chart review, lab review 61yo with N/V and persistent hiccups. Developed recurrent hiccups last night, had reglan without relief but ativan helped per nursing staff. Pt resting in bed on his side, actively having hiccups concerned due to recurrent hiccups since last week, questions if hiccups related to cerumen impaction of ears Pt voices no other c/o, has tolerated some clear liquids Review of Systems Constitutional: + see HPI, No chills, No fever Eyes: No problem reported ENT: + see HPI Respiratory: No cough Cardiac: No problem reported Abdomen: + see HPI Musculoskeletal: No problem reported Neuro: No problem reported Heme: No problem reported Endo: No problem reported Skin: No rash Medications Current Inpatient Medications Medications (Trade) Dose Ordered Sig/Cari Route Start Time Stop Time Status Last Admin Dose Admin Miscellaneous (Iv Fluids Completed) 1 ea PRN PRN N/A 01/12/17 21:15 01/12/18 21:14 Acetaminophen (Tylenol Tab) 650 mg Q4H PRN PO 01/12/17 21:15 02/11/17 21:14 Ondansetron HCl (Zofran Inj) 4 mg Q6H PRN IV 01/12/17 21:15 02/11/17 21:14 Tramadol HCl (Ultram Tab) 25 mg Q6H PRN PO 01/12/17 21:15 02/11/17 21:14 01/13/17 18:23 25 MG Hydromorphone HCl (Dilaudid Inj) 0.5 mg Q3H PRN IV 01/12/17 21:15 01/26/17 21:14 Lorazepam 0.5 mg 0.5 mg Q4H PRN IV 01/12/17 21:15 02/11/17 21:14 Promethazine HCl 12.5 mg/Sodium Chloride 50.5 ml @ 204 mls/hr Q6H PRN IV 01/12/17 21:15 02/11/17 21:14 Sodium Chloride (Nss 1000ml) 1,000 ml @ 60 mls/hr [id number] IV 01/12/17 21:15 02/11/17 21:14 01/14/17 06:13 60 MLS/HR Amlodipine Besylate (Norvasc Tab) 10 mg DAILY PO 01/13/17 08:00 02/12/17 08:59 01/14/17 07:55 10 MG Lorazepam (Ativan Tab) 0.5 mg BID PRN PO 01/12/17 21:15 02/11/17 21:14 Metoprolol Succinate (Toprol Xl Tab) 25 mg BID PO 01/13/17 08:00 02/12/17 08:59 01/14/17 07:55 25 MG Pantoprazole Sodium (Protonix Tab) 40 mg QAM PO 01/13/17 08:00 02/12/17 08:59 01/14/17 07:55 40 MG Metoclopramide HCl (Reglan Inj) 10 mg Q6H PRN IV 01/13/17 00:15 02/12/17 00:14 01/13/17 21:30 10 MG Chlorpromazine HCl (Thorazine Inj) 25 mg Q6 PRN IM 01/13/17 00:15 02/12/17 00:14 01/13/17 18:26 25 MG Insulin Aspart (novoLOG ASPART) SLIDING SCALE If C... ACHS SC 01/13/17 06:30 02/12/17 06:29 Glucose (Glucose 40% Gel) 15-30 GRAMS 15 GRAMS... UD PRN PO 01/13/17 00:15 02/12/17 00:14 Glucose (Glucose Chew Tab) 4-8 Tablets 4 Tabl... UD PRN PO 01/13/17 00:15 02/12/17 00:14 Dextrose (Dextrose 50% 50ML Syringe) 25-50ML OF 50% DW IV FOR... UD PRN IV 01/13/17 00:15 02/12/17 00:14 Glucagon 1 mg 1 mg UD PRN SQ 01/13/17 00:15 02/12/17 00:14 Lorazepam/Syringe (Ativan Inj/ Syringe) 1 ml @ 1 mls/min Q4H PRN IV 01/13/17 19:30 02/12/17 19:29 01/14/17 08:57 1 MLS/MIN Objective Vital Signs Date Time Temp Pulse Resp B/P Pulse Ox O2 Delivery O2 Flow Rate FiO2 01/14/17 08:15 Room Air 01/14/17 07:16 37.1 90 20 157/84 95 Room Air 01/14/17 00:00 Room Air 01/13/17 23:10 37.3 87 16 154/79 95 Room Air 01/13/17 20:00 Room Air 01/13/17 16:00 Room Air 01/13/17 15:04 36.8 86 20 154/76 98 Room Air Physical Exam General Appearance: WD/WN, no apparent distress (actively having hiccups) Eyes: normal inspection ENT: hearing grossly normal Respiratory/Chest: lungs clear, normal breath sounds, no respiratory distress Cardiovascular: regular rate, rhythm Abdomen: normal bowel sounds, non tender, soft Extremities: normal range of motion Neurologic/Psych: alert, normal mood/affect, oriented x 3 Skin: normal color Laboratory Results Last 24 Hours Test 01/13/17 17:31 01/13/17 19:42 01/14/17 06:25 01/14/17 07:42 Bedside Glucose 100 mg/dl 195 mg/dl 111 mg/dl White Blood Count 8.22 K/uL Red Blood Count 3.68 M/uL Hemoglobin 10.1 g/dL Hematocrit 30.2 % Mean Corpuscular Volume 82.1 fL Mean Corpuscular Hemoglobin 27.4 pg Mean Corpuscular Hemoglobin Concent 33.4 g/dl Platelet Count 201 K/uL Mean Platelet Volume 8.5 fL Neutrophils (%) (Auto) 65.6 % Lymphocytes (%) (Auto) 15.8 % Monocytes (%) (Auto) 14.5 % Eosinophils (%) (Auto) 2.9 % Basophils (%) (Auto) 0.6 % Neutrophils # (Auto) 5.39 K/uL Lymphocytes # (Auto) 1.30 K/uL Monocytes # (Auto) 1.19 K/uL Eosinophils # (Auto) 0.24 K/uL Basophils # (Auto) 0.05 K/uL RDW Standard Deviation 41.6 fL RDW Coefficient of Variation 13.8 % Immature Granulocyte % (Auto) 0.6 % Immature Granulocyte # (Auto) 0.05 K/uL Sodium Level 138 mmol/L Potassium Level 3.8 mmol/L Chloride Level 102 mmol/L Carbon Dioxide Level 27 mmol/L Anion Gap 9.0 mmol/L Blood Urea Nitrogen 11 mg/dl Creatinine 1.40 mg/dl Est Creatinine Clear Calc Drug Dose 52.1 ml/min Estimated GFR () 62.0 Estimated GFR (Non- 53.5 BUN/Creatinine Ratio 8.0 Random Glucose 115 mg/dl Calcium Level 8.1 mg/dl Test 01/14/17 11:35 Bedside Glucose 110 mg/dl Assessment and Plan 61yo admitted with N/V which has improved but hiccups persist - Recommend continuing Chlorpromazine 25mg at regular intervals instead of PRN - consider discontinuing Reglan as this will likely not provide benefit - notes hx of esophageal stricture or Schatzki's ring (details not known) - not having significant dysphagia, would defer outpatient EGD to his primary Oracle Manager (Dr. Gracia/FELICITA Garcia) ATTESTATION: I have performed a history and physical examination of this patient and reviewed the electronic record. Specifically, on physical examination he continues to have hiccoughs. We will add baclofen. I have discussed the case with Su Alcocer PA-C. The above note reflects my findings, conclusions, and recommendations. Andres Fox MD
[2017-01-14] MEDS: CHLORPROMAZINE HCL INJ 25 MG/ML 2 ML AMP IM PRN (14:31)
[2017-01-14 14:50] VITALS: BP 155/83; PULSE 104; TEMP 36.8; O2SAT 98
[2017-01-14] MEDS: BACLOFEN 10 MG TAB PO SCH ×2 (15:54→20:26)
[2017-01-14 20:20] VITALS: BP 166/79; PULSE 100; O2SAT 96
--- NOTE | 2017-01-14 20:48 | Progress Note ---
Internal Med Progress Note Date of Service: Jan 14, 2017. Provider Documentation: SUBJECTIVE: hiccup has improved no fever or chills OBJECTIVE: Vital Signs-as noted below Exam: General- oriented x 3, not in distress, Eyes- anicteric Neck-no JVD Lungs- clear breath sounds bilaterally Heart- normal rate, regular rhythm; no murmurs Abdomen- normal bowel sounds, soft, nontender Extremities- no pretibial edema, no calf tenderness Neuro- alert, oriented x 3 Skin- warm & dry Lab data as noted below. ASSESSMENT & PLAN: INTRACTABLE HICCUPS - patient presenting with intermittent lightheadedness/dizziness, persistent hiccups; was seen at [facility] ER this week and had head CT and brain MRI - hx of esophageal stricture s/p dilation (details unknown) - CT Abdomen: hiatal hernia - cont Thorazine, D/c Reglan as not effective to improve symptom - GI on board-appreciate input CHELE - likely pre renal due to poor PO intake and N/V - crea improving - continue IV fluids GENERALIZED WEAKNESS, DIZZINESS - likely orthostasis from volume depletion -cont IV fluids PT /OT eval - improving HTN - BP stable - hold losartan/HCTZ due to CHELE - continue metoprolol and amlodipine DM - hold oral agents and utilize SSI while hospitalized DVT PROPHYLAXIS scd and teds ambulate DISPOSITION Discharge home when medically stable Vital Signs: Date Time Temp Pulse Resp B/P Pulse Ox O2 Delivery O2 Flow Rate FiO2 01/15/17 07:48 Room Air 01/15/17 07:07 37.2 89 20 153/78 95 Room Air 01/15/17 00:08 36.9 98 20 166/82 95 Room Air 01/15/17 00:00 Room Air 01/14/17 20:20 100 166/79 96 Room Air 01/14/17 20:00 Room Air 01/14/17 16:15 Room Air 01/14/17 14:50 36.8 104 20 155/83 98 Room Air Lab Results: Results Past 24 Hours Test 01/14/17 16:41 01/14/17 19:29 01/15/17 07:45 01/15/17 11:46 Range/Units Bedside Glucose 102 262 126 112 70-99 mg/dl
[2017-01-14] MEDS ORDERED: LRS10 PO (21:48)
--- NOTE | 2017-01-14 21:50 | Discharge Instructions ---
Discharge Instructions Date of Service Jan 14, 2017. Admission Reason for Admission: Abdominal Pain, Nausea, Vomiting Discharge Discharge Diagnosis / Problem: INTRACTABLE HICCUP /DEHYDRATION /CHELE Discharge Goals Goal(s): Increase independence, Diagnostic testing, Therapeutic intervention Activity Recommendations Activity Limitations: resume your previous activity . Instructions / Follow-Up Instructions / Follow-Up HOSPITAL FOLLOW UP WITH FAMILY PHYSICIAN IN A WEEK Current Hospital Diet Patient's current hospital diet: Clear Liquid Diet Discharge Diet Recommended Diet: Regular Diet Pending Studies Studies pending at discharge: no Laboratory Results Hemoglobin A1c Test 01/12/17 17:05 Range/Units Estimated Average Glucose 131 mg/dl Hemoglobin A1c 6.2 H 4.5-5.6 % Medical Emergencies . Who to Call and When: Medical Emergencies: If at any time you feel your situation is an emergency, please call 911 immediately. . Non-Emergent Contact Non-Emergency issues call your: Primary Care Provider . . "Provider Documentation" section prepared by Daisy Puente. VTE Core Measure Inpt VTE Proph given/why not?: Unfractionated heparin SQ
[2017-01-15 00:08] VITALS: BP 166/82; PULSE 98; TEMP 36.9; O2SAT 95
[2017-01-15 07:07] VITALS: BP 153/78; PULSE 89; TEMP 37.2; O2SAT 95
[2017-01-15] MEDS ORDERED: PANTOprazole SOD 40 MG TAB PO SCH (08:00)
[2017-01-15] MEDS: BACLOFEN 10 MG TAB PO SCH ×2 (08:29→14:20)
[2017-01-15] MEDS: PANTOprazole SOD 40 MG TAB PO SCH (08:30)
[2017-01-15] MEDS: AMLODIPINE BESYLATE 5 MG TAB PO SCH (08:30)
[2017-01-15] MEDS: METOPROLOL SUCC 25MG EXT REL TAB PO SCH (08:32)
[2017-01-15] MEDS: INSULIN ASPART 100 UNITS/ML 3 ML PEN SC SCH ×2 (08:33→11:47)
[2017-01-15] MEDS: SODIUM CHLORIDE 0.9% 1000ML 1,000 ML IV SCH (11:48)
--- NOTE | 2017-01-15 11:55 | Progress Note ---
Progress Note Date of Service Jan 15, 2017. Progress Note GI Quick Note: Pt is 61yo being followed for hiccups - seems to have resolved after addition of Baclofen last night. Pt anticipates discharge today. A/P: Hiccups - recommend continuing baclofen 10mg PO TID as needed out patient for hiccups.; Thorazine PO can be used PRN also. F/U with Dr. Gracia in [place]. GI will sign off.
[2017-01-15] MEDS ORDERED: CHLO1TAB19 PO (13:58)
[2017-01-15] MEDS ORDERED: LRS10 PO (13:59)
--- NOTE | 2017-01-15 15:09 | Progress Note ---
Internal Med Progress Note Date of Service: Jan 15, 2017. Provider Documentation: SUBJECTIVE: no episode of hiccup today tolerating diet well feels comfortable appreciate eval form GI - recommend continuing baclofen 10mg PO TID as needed out patient for hiccups. ; Thorazine PO can be used PRN also. F/U with Dr. Gracia in [place]. OBJECTIVE: Vital Signs-as noted below Exam: General- oriented x 3, not in distress, Eyes- anicteric Neck-no JVD Lungs- clear breath sounds bilaterally Heart- normal rate, regular rhythm; no murmurs Abdomen- normal bowel sounds, soft, nontender Extremities- no pretibial edema, no calf tenderness Neuro- alert, oriented x 3 Skin- warm & dry Lab data as noted below. ASSESSMENT & PLAN: INTRACTABLE HICCUPS resolved , with addition of Baclofen - patient presenting with intermittent lightheadedness/dizziness, persistent hiccups; was seen at [facility] ER this week and had head CT and brain MRI - hx of esophageal stricture s/p dilation - CT Abdomen: hiatal hernia - cont Thorazine, appreciate input form GI symptom resolved , tolerating diet -stable to be discharge home today CHELE resolved - likely pre renal due to poor PO intake and N/V - creatinine improved to baseline with IV fluids GENERALIZED WEAKNESS, DIZZINESS symptom resolved -energy at baseline ambulating independently HTN - BP stable - continue metoprolol and amlodipine DM - resume oral agents on discharge DVT PROPHYLAXIS scd and teds ambulate DISPOSITION Discharge home today Vital Signs: Date Time Temp Pulse Resp B/P Pulse Ox O2 Delivery O2 Flow Rate FiO2 01/15/17 07:48 Room Air 01/15/17 07:07 37.2 89 20 153/78 95 Room Air 01/15/17 00:08 36.9 98 20 166/82 95 Room Air 01/15/17 00:00 Room Air 01/14/17 20:20 100 166/79 96 Room Air 01/14/17 20:00 Room Air 01/14/17 16:15 Room Air Lab Results: Results Past 24 Hours Test 01/14/17 16:41 01/14/17 19:29 01/15/17 07:45 01/15/17 11:46 Range/Units Bedside Glucose 102 262 126 112 70-99 mg/dl
[2017-01-15 15:16] VITALS: BP 153/78; PULSE 89; TEMP 37.2; O2SAT 95
--- NOTE | 2017-01-15 15:17 | Discharge Summary ---
Discharge Summary Date of Service Jan 15, 2017. Discharge Summary Admission Date: Jan 12, 2017 at 20:48 Discharge Date: Jan 15, 2017 Discharge Disposition: Home Principal Diagnosis: INTRACTABLE HICCUP /DEHYDRATION /CHELE Consultations: GI Medication Reconciliation New Medications: Chlorpromazine Hcl (Thorazine) 25 Mg Tab 25 MG PO Q8 PRN for Documentation, #90 TAB 3 Refills NEEDED FOR HICCUP Baclofen (Baclofen) 10 Mg Tab 10 MG PO TID PRN for Documentation for 30 Days, #90 TAB 3 Refills NEEDED FOR HICCUP Continued Medications: Amlodipine (Norvasc) 10 Mg Tab 10 MG PO DAILY, TAB Ascorbic Acid (Vitamin C 500 mg) 1 Chw Chw 500 MG PO DAILY Aspirin (Aspirin Ec) 81 Mg Tab 81 MG PO DAILY Dutasteride (Avodart) 0.5 Mg Cap 0.5 MG PO QPM, CAP Loperamide Hcl (Imodium) 2 Mg Cap 2 MG PO PRN UD, CAP Lorazepam (Ativan) 0.5 Mg Tab 0.5 MG PO BID PRN for Anxiety, TAB Metformin Hcl (Glucophage) 850 Mg Tab 850 MG PO BID, TAB Metoprolol Succ (Toprol Xl) (Toprol-Xl) 25 Mg Tabcr 25 MG PO BID, #30 TAB Omeprazole (Prilosec) 40 Mg Cap 40 MG PO DAILY, CAP Pravastatin (Pravachol ) 20 Mg Tab 20 MG PO QPM, TAB Promethazine (Phenergan ) 12.5 Mg Tab 12.5 MG PO Q4H PRN for Nausea, TAB [Iron] () 65 MG PO QPM Discontinued Medications: Amoxicillin & Pot Clavulanate (Augmentin 875-125 mg) 1 Tab Tab 1 TAB PO BID, #14 TAB Losartan Potassium & Hydrochlo (Hyzaar) 1 Tab Tab 1 TAB PO DAILY for 30 Days, #30 TAB 5 Refills 100-25mg Admission Information HPI (per Admitting provider): 61 year old male who presents to the ER with generalized weakness and hiccups. Patient reports 6 days ago he felt lightheaded and dizzy and was leaning to the right whenever he would walk. He was seen at [facility] ER. Per his report, he had CT scan of the head that was normal and was discharged home to follow up with his PCP who he saw the following day. He was then diagnosed with an ear infection and was given an antibiotic. The following morning he woke up and had hiccups. While taking his pills, he hiccuped and choked on his pills. He was able to get them out on his own. He also reports left hand numbness at that time that quickly resolved. He then went back to the ER. Per his report, he had an MRI of the brain that was normal was discharged home to follow up with GI and his PCP. Patient reports the hiccuping has persisted. He has been unable to keep liquids or food down. He still feels lightheaded and dizzy at times. No syncopal events. No unilateral weakness, numbness, or tingling. He denies abdominal pain. He reports he has been having diarrhea. He denies BRBRP or dark tarry stools. No chest pain or shortness of breath. He denies fever and chills. Feels like his urine output is down but denies other urinary symptoms. In the ER , patient's creat is 1.6 (unknown baseline but patient denies history of kidney problems). CT head is negative for acute findings and remainder of his labs are unremarkable. Physical Exam (per Admitting): General Appearance: no apparent distress (hiccuping during exam) Head: normocephalic Eyes: normal inspection ENT: hearing grossly normal Neck: supple, no JVD Respiratory/Chest: lungs clear, normal breath sounds, no respiratory distress Cardiovascular: regular rate, rhythm, no edema, normal peripheral pulses Abdomen/GI: normal bowel sounds, non tender, soft Extremities/Musculoskelatal: normal inspection, no calf tenderness Neurologic/Psych: no motor/sensory deficits, alert, normal mood/affect, oriented x 3 Skin: normal color, warm/dry Hospital Course INTRACTABLE HICCUPS resolved , with addition of Baclofen - patient presenting with intermittent lightheadedness/dizziness, persistent hiccups; was seen at [facility] ER this week and had head CT and brain MRI - hx of esophageal stricture s/p dilation - CT Abdomen: hiatal hernia - cont Thorazine, appreciate input form GI symptom resolved , tolerating diet -stable to be discharge home today CHELE resolved - likely pre renal due to poor PO intake and N/V - creatinine improved to baseline with IV fluids GENERALIZED WEAKNESS, DIZZINESS symptom resolved -energy at baseline ambulating independently HTN - BP stable - continue metoprolol and amlodipine DM - resume oral agents on discharge DVT PROPHYLAXIS scd and teds ambulate DISPOSITION Discharge home today Discharge Instructions DI: Medical v4 Discharge Instructions Date of Service Jan 14, 2017. Admission Reason for Admission: Abdominal Pain, Nausea, Vomiting Discharge Discharge Diagnosis / Problem: INTRACTABLE HICCUP /DEHYDRATION /CHELE Discharge Goals Goal(s): Increase independence, Diagnostic testing, Therapeutic intervention Activity Recommendations Activity Limitations: resume your previous activity . Instructions / Follow-Up Instructions / Follow-Up HOSPITAL FOLLOW UP WITH FAMILY PHYSICIAN IN A WEEK Current Hospital Diet Patient's current hospital diet: Clear Liquid Diet Discharge Diet Recommended Diet: Regular Diet Pending Studies Studies pending at discharge: no Laboratory Results Hemoglobin A1c Test 01/12/17 17:05 Range/Units Estimated Average Glucose 131 mg/dl Hemoglobin A1c 6.2 H 4.5-5.6 % Medical Emergencies . Who to Call and When: Medical Emergencies: If at any time you feel your situation is an emergency, please call 911 immediately. . Non-Emergent Contact Non-Emergency issues call your: Primary Care Provider . . "Provider Documentation" section prepared by Daisy Puente. VTE Core Measure Inpt VTE Proph given/why not?: Unfractionated heparin SQ Additional Copies To Allan Williamson M.D.
== END 2017-01-15 15:56 | disposition home or self-care (01) ==
LOC: ENRESERVTM → ENRESERVDT → C.EDB 16:42 → C.MS4W 20:48
PROVIDERS: ADMIT Internal Medicine; ATTEND Hospitalist
DX: R06.6 Hiccough (principal); E87.1 Hypo-osmolality and hyponatremia; N17.9 Acute kidney failure, unspecified; R42 Dizziness and giddiness; R53.1 Weakness; R11.2 Nausea with vomiting, unspecified; K44.9 Diaphragmatic hernia without obstruction or gangrene; I12.9 Hypertensive chronic kidney disease with stage 1 through stage 4 chronic kidney disease, or unspecified chronic kidney disease; N18.9 Chronic kidney disease, unspecified; D63.1 Anemia in chronic kidney disease; K22.2 Esophageal obstruction; E11.9 Type 2 diabetes mellitus without complications; N40.0 Benign prostatic hyperplasia without lower urinary tract symptoms; E78.5 Hyperlipidemia, unspecified; Z79.899 Other long term (current) drug therapy; Z79.84 Long term (current) use of oral hypoglycemic drugs; Z79.82 Long term (current) use of aspirin; Z85.828 Personal history of other malignant neoplasm of skin; Z87.891 Personal history of nicotine dependence; Z80.0 Family history of malignant neoplasm of digestive organs